=== PATIENT | male | born 1990 | race Two or more races ===

== ENCOUNTER 2023-12-26 09:44 | Day surgery (SDC) | payer OTHER ==
[~2023-12-26] VITALS: Ht 165.1 cm; Wt 70.3 kg
[2023-12-26] MEDS ORDERED: GLYCOPYRROLATE 0.2 MG/ML 1ML VIAL ONE (10:10)
[2023-12-26] MEDS ORDERED: DexAMETHasone SOD PHOS 10MG/1ML VIAL INJ ONE (10:10)
[2023-12-26] MEDS ORDERED: LIDOCAINE 1% INJ PF 5ML AMP ONE (10:10)
[2023-12-26] MEDS ORDERED: PROPOFOL 10 MG/ML 20 ML IV ONE ×3 (10:10→13:40)
[2023-12-26] MEDS ORDERED: KETOROLAC TROMETH 30 MG/ML 1ML VIAL ONE (10:10)
[2023-12-26] MEDS ORDERED: ONDANSETRON HCL 4 MG/2 ML VIAL ONE (10:10)
[2023-12-26] MEDS ORDERED: ACETAMINOPHEN IV 1000 MG/100ML (10MG/ML) IV ONE (11:15)
[2023-12-26] MEDS ORDERED: CELECOXIB 100 MG CAP PO ONE (11:15)
[2023-12-26] MEDS ORDERED: GABAPENTIN 400 MG CAP PO ONE (11:15)
[2023-12-26] MEDS ORDERED: ROPIVACAINE 0.5% (5MG/ML) 20ML AMPULE IJ ONE (12:22)
[2023-12-26] MEDS: ceFAZolin 2 GM/D5W50ml 50 ML IV ONE (12:45)
[2023-12-26 14:15] VITALS: TEMP 97.5; O2SAT 100
[2023-12-26] MEDS ORDERED: oxyCODONE HCL 5MG TAB PO PRN (14:30)
[2023-12-26] MEDS ORDERED: FLUMAZENIL 0.1 MG/ML INJ 10ML MDV IV PRN (14:30)
[2023-12-26] MEDS ORDERED: ePHEDrine SULFATE 50 MG/ML AMP IV PRN (14:30)
[2023-12-26] MEDS ORDERED: hydrALAZINE HCL 20 MG/ML VL IV PRN (14:30)
[2023-12-26] MEDS ORDERED: fentaNYL CITRATE 100 MCG/2 ML VL IV PRN (14:30)
[2023-12-26] MEDS ORDERED: NALOXONE HCL 0.4 MG/ML VIAL IV PRN (14:30)
[2023-12-26] MEDS ORDERED: ONDANSETRON HCL 4 MG/2 ML VIAL IV PRN (14:30)
[2023-12-26] MEDS ORDERED: HYDROmorphone HCL 2 MG/ML VL/or syr IV PRN (14:30)
[2023-12-26 15:00] VITALS: BP 140/87; PULSE 94; RESP 16; O2SAT 99
== END 2023-12-26 15:15 | disposition home or self-care (01) ==
LOC: SUR 09:44
PROVIDERS: ATTEND Orthopaedic Surgery
DX: G56.22 Lesion of ulnar nerve, left upper limb (principal); M77.12 Lateral epicondylitis, left elbow; S44.0 Injury of ulnar nerve at upper arm level; I10 Essential (primary) hypertension; F17.210 Nicotine dependence, cigarettes, uncomplicated; X58.XXXA Exposure to other specified factors, initial encounter; Y93.89 Activity, other specified; Y92.89 Other specified places as the place of occurrence of the external cause; Y99.8 Other external cause status
CPT/HCPCS: 24341; 64718; C1713; J0690; J1100; J1885; J2405; J2704; J0131